=== PATIENT | male | born 1970 | race Caucasian/White ===

== ENCOUNTER 2016-11-04 16:53 | Emergency (ER) | payer OTHER ==
[~2016-11-04] VITALS: Ht 165.1 cm; Wt 71.5 kg
[~2016-11-04 16:53] MED LIST: CLINDAMYCIN HC300 MG PO
[2016-11-04 17:00] VITALS: BP 126/84
[2016-11-04] MEDS ORDERED: ZITHROMAX Z-PA250 MG PO (18:59)
[2016-11-04] MEDS ORDERED: ALLEGRA-D 121 TABLET PO (18:59)
[2016-11-04] MEDS ORDERED: FLONASE16 G1 BOTH NARES (18:59)
== END 2016-11-04 19:10 | disposition home or self-care (01) ==
LOC: EME 16:53
DX: H65.91 Unspecified nonsuppurative otitis media, right ear (principal); H69.81 Other specified disorders of Eustachian tube, right ear; F17.200 Nicotine dependence, unspecified, uncomplicated
CPT/HCPCS: 99281; 99283

== ENCOUNTER 2016-11-26 14:02 | Emergency (ER) | payer OTHER ==
[~2016-11-26 14:02] MED LIST changes: +ALLEGRA-D 121 TABLET PO; +FLONASE16 G1 BOTH NARES; +ZITHROMAX Z-PA250 MG PO
== END 2016-11-26 14:21 | disposition home or self-care (01) ==
LOC: EME → EDBD 14:02 → EME 14:21
DX: T65.91XA Toxic effect of unspecified substance, accidental (unintentional), initial encounter (principal)
CPT/HCPCS: J1630; J2250

== ENCOUNTER 2017-01-20 17:28 | Emergency (ER) | payer OTHER ==
[~2017-01-20] VITALS: Ht 167.6 cm; Wt 68.2 kg
[2017-01-20 18:35] LABS: HEMATOCRIT 40.2 % (38.0-50.0); MCH 31.3 PG (29.0-34.0); MCHC 33.8 G/DL (30.0-36.0); MCV 92.6 FL (86-99); MEAN PLAT.VOLUME 10.3 uM^3 (9.0-12.4); PLATELET COUNT 158 K/uL (156-360); RBC DIS.WIDTH-CV 12.1 % (11.8-14.6); RBC DIS.WIDTH-SD 41.4 % (39-53); RED BLOOD COUNT 4.34 M/uL (4.00-5.50); WHITE BLOOD COUNT 6.6 K/uL (4.1-10.2)
[2017-01-20 18:44] LABS: CHLORIDE 108 mEq/L (99-109); POTASSIUM 4.3 mEq/L (3.7-5.4); SODIUM 141 mEq/L (136-147)
[2017-01-20 18:46] LABS: GLUCOSE 123 mg/dL (70-99)
[2017-01-20 18:47] LABS: ANION GAP 9 MEQ/L (2-14)
[2017-01-20 18:49] LABS: SERUM ETHYL ALCOHOL < 10 mg/dL
[2017-01-20 18:50] LABS: GFR ESTIMATE (CALCULATED) > 59 mL/min/
[2017-01-20 18:51] LABS: UREA NITROGEN (BUN) 16 mg/dL (9-23)
[2017-01-20 19:45] LABS: AMPHETAMINE NEGATIVE (500 ng/mL); BENZODIAZEPINES NEGATIVE (150 ng/mL); COCAINE NEGATIVE (150 ng/mL); METHAMPHETAMINE NEGATIVE (500 ng/mL); OPIATES (MORPHINE) NEGATIVE (100 ng/mL); PHENCYCLIDINE NEGATIVE (25 ng/mL); THC CANNABINOIDS NEGATIVE (50 ng/mL)
[2017-01-20 19:46] LABS: BARBITURATES NEGATIVE (200 ng/mL); INTERNAL CONTROLS VALID? YES; METHADONE NEGATIVE (200 ng/mL); OXYCODONE NEGATIVE (100 ng/mL); PROPOXYPHENE NEGATIVE (300 ng/mL); TRICYCLIC ANTIDEPRESSANTS NEGATIVE (300 ng/mL)
[2017-01-20 20:06] VITALS: BP 117/71
[2017-01-21] MEDS ORDERED: SUBOXONE 12 MG1 EACH SL (14:43)
[2017-01-21] MEDS ORDERED: SUBOXONE 8 MG-1 EAC2 SL (14:43)
[2017-01-21] MEDS ORDERED: GABAPENTIN300 MG PO (14:44)
== END 2017-01-20 20:08 | disposition left against medical advice (07) ==
LOC: EME 17:28
PROVIDERS: Emergency Medicine
DX: R56.9 Unspecified convulsions (principal); F17.200 Nicotine dependence, unspecified, uncomplicated; Z88.0 Allergy status to penicillin
CPT/HCPCS: 80048; 85027; 93005; 99281; 99284; G0480

== ENCOUNTER 2017-01-21 10:22 | Emergency (ER) | payer OTHER ==
[~2017-01-21] VITALS: Ht 167.6 cm; Wt 68.4 kg
[2017-01-21 13:20] LABS: EOSINOPHIL (%) 1.9 % (0-5); EOSINOPHIL COUNT 0.1 K/uL (0-0.3); HEMATOCRIT 41.7 % (38.0-50.0); IMMATURE GRANULOCYTE (%) 0.3 % (0.0-0.7); INSTRUMENT ABS NEUTROPHIL CT 3.8 K/uL; MCH 31.1 PG (29.0-34.0); MCHC 33.6 G/DL (30.0-36.0); MCV 92.7 FL (86-99); MEAN PLAT.VOLUME 10.4 uM^3 (9.0-12.4); MONOCYTE (%) 6.6 % (3-12); MONOCYTE COUNT 0.4 K/uL (0-0.8); NEUTROPHIL (%) 58.8 % (45-76); NEUTROPHIL COUNT 3.8 K/uL (1.8-6.4); PLATELET COUNT 157 K/uL (156-360); RBC DIS.WIDTH-CV 12.2 % (11.8-14.6); RBC DIS.WIDTH-SD 41.8 % (39-53); WHITE BLOOD COUNT 6.4 K/uL (4.1-10.2)
[2017-01-21 13:30] LABS: CHLORIDE 107 mEq/L (99-109); POTASSIUM 4.1 mEq/L (3.7-5.4); SODIUM 141 mEq/L (136-147)
[2017-01-21 13:32] LABS: GLUCOSE 106 mg/dL (70-99)
[2017-01-21 13:33] LABS: ANION GAP 10 MEQ/L (2-14)
[2017-01-21 13:36] LABS: GFR ESTIMATE (CALCULATED) > 59 mL/min/
[2017-01-21 13:37] LABS: UREA NITROGEN (BUN) 13 mg/dL (9-23)
[2017-01-21] MEDS ORDERED: SUBOXONE 12 MG1 EACH SL (14:43)
[2017-01-21] MEDS ORDERED: SUBOXONE 8 MG-1 EAC2 SL (14:43)
[2017-01-21 14:44] VITALS: BP 110/67
[2017-01-21] MEDS ORDERED: GABAPENTIN300 MG PO (14:44)
== END 2017-01-21 14:46 | disposition home or self-care (01) ==
LOC: EME 10:22
PROVIDERS: Emergency Medicine
DX: G40.909 Epilepsy, unspecified, not intractable, without status epilepticus (principal); F17.200 Nicotine dependence, unspecified, uncomplicated
CPT/HCPCS: 72040; 80048; 85025; 99281; 99284